=== PATIENT | female | born 1970 | race Caucasian/White ===

== ENCOUNTER 2021-12-23 08:17 | Emergency (ER) | payer OTHER ==
[~2021-12-23] VITALS: Ht 149.9 cm; Wt 65.8 kg
[2021-12-23 08:37] VITALS: BP_SYST 175
[2021-12-23] MEDS ORDERED: ERYTHROMYCIN BASE 0.5% EYE OINT...G. RIGHT EYE ONE (11:30)
[2021-12-23] MEDS ORDERED: ERYEYE RIGHT EYE (11:59)
[2021-12-23 12:30] VITALS: BP_SYST 160
== END 2021-12-23 12:30 | disposition home or self-care (01) ==
LOC: SED 08:17
DX: T15.11XA Foreign body in conjunctival sac, right eye, initial encounter (principal); Z79.899 Other long term (current) drug therapy; X58.XXXA Exposure to other specified factors, initial encounter; Y93.89 Activity, other specified; Y92.89 Other specified places as the place of occurrence of the external cause; Y99.8 Other external cause status
CPT/HCPCS: 99284